=== PATIENT | female | born 1955 | race Caucasian/White ===

== ENCOUNTER 2021-05-25 16:22 | Emergency (ER) | payer MEDICARE, MEDICAID ==
[~2021-05-25] VITALS: Ht 157.5 cm; Wt 52.0 kg
[2021-05-25 16:52] VITALS: BP 209/101
[2021-05-25] MEDS ORDERED: TRIA1TAB92 PO (17:02)
[2021-05-25] MEDS ORDERED: ATEN50TA PO (17:02)
[2021-05-25] MEDS ORDERED: BENA40TA9 PO (17:02)
[2021-05-25] MEDS ORDERED: PRED5TAB48 MT (18:18)
== END 2021-05-25 18:33 | disposition home or self-care (01) ==
LOC: ER 16:22
DX: T78.40XA Allergy, unspecified, initial encounter (principal); X58.XXXA Exposure to other specified factors, initial encounter; E78.00 Pure hypercholesterolemia, unspecified; I10 Essential (primary) hypertension
CPT/HCPCS: 82962; 93005; 99283